=== PATIENT | female | born 2000 | race Caucasian/White ===

== ENCOUNTER 2023-08-30 01:26 | Emergency (ER) | payer BC, OTHER ==
[2023-08-30 01:43] VITALS: BP 114/88; PULSE 67; RESP 16; TEMP 97.4; O2SAT 100
--- NOTE | 2023-08-30 01:55 | ERPHSYRPT ---
- History of Present Illness Time Seen by Provider: 08/30/23 01:49 Source: patient Exam Limitations: no limitations Patient Subjective Stated Complaint: Pt states her right jaw "locked" at approx 2100 yesterday evening. Took ibuprofen which helped slightly with the discomf ort. Triage Nursing Assessment: Pt alert and oriented x3. No apparent respiratory distress; respirations easy/nonlabored. Skin w/p/d. Pt is talking, reports being able to open mouth fully, minimal swelling along right lower jaw bone. Physician History: 23-year-old female presented in the ER with complaint of bilateral TMJ pain and clicks since early tonight. Patient reports it is out of place and wants it to be popped back and. Patient has taken ibuprofen and currently pain-free. Patient has no difficulty talking or movements of jaw but feels clicks. Allergies/Adverse Reactions: No Known Drug Allergies Allergy (Unverified 08/30/23 01:32) Home Medications: ALPRAZolam 0.25 MG [xanAX 0.25 MG] 1 tab PO BID 08/30/23 [History] Omeprazole 40 mg PO DAILY 08/30/23 [History] Venlafaxine HCl ER 75 mg [Effexor XR 75 MG] 75 mg PO HS 08/30/23 [History] Hx Tetanus, Diphtheria Vaccination/Date Given: Yes Hx Influenza Vaccination/Date Given: No Travel Risk - International Travel Have you traveled outside of the country in past 3 weeks: No - Emerging Infectious Disease Are you exhibiting symptoms associated with any current EIDs: No - Review of Systems Constitutional: No Symptoms Ears, Nose, & Throat: Mouth Pain Respiratory: No Symptoms Cardiac: No Symptoms Abdominal/Gastrointestinal: No Symptoms Musculoskeletal: No Symptoms Skin: No Symptoms Neurological: No Symptoms - Past Medical History Pertinent Past Medical History: Yes GI Medical History: GERD Psycho-Social History: Anxiety, Depression - Past Surgical History Past Surgical History: Yes Other Surgical History: wisdom - Female History Hx Now: No - Social History Smoking Status: Never smoker Exposure to second hand smoke: No Drug Use: none - Nursing Vital Signs Nursing Vital Signs: Initial Vital Signs Temperature 97.4 F 08/30/23 01:32 Pulse Rate 67 08/30/23 01:32 Respiratory Rate 16 08/30/23 01:32 Blood Pressure 114/88 08/30/23 01:32 O2 Sat by Pulse Oximetry 100 08/30/23 01:32 Pain Scale Pain Intensity 3 - Physical Exam General Appearance: no apparent distress Eye Exam: bilateral eye: normal inspection, PERRL, EOMI Ear Exam: bilateral ear: auricle normal, canal normal, TM normal Nasal Exam: normal inspection Throat Exam: normal, pharynx normal, No dental tenderness (No TMJ tenderness/swelling. Intact movements at TMJ joints bilaterally. Bilateral TMJ clicks) Neck Exam: normal inspection, non-tender, supple, full range of motion Cardiovascular/Respiratory Exam: normal breath sounds, regular rate/rhythm Neurologic Exam: alert, oriented x 3, cooperative, corral boss II-XII nml as tested Skin Exam: normal color SpO2 Interpretation: normal SpO2: 100 O2 Delivery: Room Air - Progress Progress: improved Progress Note: 08/30/23 01:51 Patient is evaluated in the ER for possible TMJ dislocation. Patient has bilateral TMJ clicks not dislocation at all. No TMJ tenderness. No difficulty movements of jaw. She is pain-free. She is advised to have outpatient follow- up with her dentist for further evaluation. I do not think patient needs any workup done in the emergency room. Counseled pt/family regarding: diagnosis, need for follow-up Medical Desision Making - Risk of complications Minimal Risk: Minimal risk of morbidity - Departure Departure Disposition: Home Clinical Impression: Temporomandibular joint click Condition: Stable Critical Care Time: No Referrals: TORSTEN CALDWELL [Primary Care Provider] - Follow up/PCP as directed KATIE PAREKH DDS [NON-STAFF Y W/O PRIVILEGES] - Follow up other (Call for appointment for reevaluation) Instructions: Temporomandibular Joint (TMJ) Disorders (DC) Additional Instructions: Take Tylenol/ibuprofen as needed. Follow-up with your dentist for reevaluation. Return to ER for any worsening.
== END 2023-08-30 01:58 | disposition home or self-care (01) ==
LOC: ED 01:26
DX: M26.603 Bilateral temporomandibular joint disorder, unspecified (principal); Z79.899 Other long term (current) drug therapy
CPT/HCPCS: 99281